=== PATIENT | female | born 1990 | race Caucasian/White ===

== ENCOUNTER → 2020-05-08 | Outpatient (REF) | payer OTHER ==
[~2020-05-08] MED LIST: DEPO150I IM; MONT10TA4 PO
[2020-05-08 17:50] LABS: APPEARANCE, URINE CLEAR (CLEAR); BACTERIA, URINE AUTO 1+ (NEGATIVE); BILIRUBIN, URINE AUTO NEGATIVE (NEGATIVE); BLOOD, URINE BLOOD NEGATIVE (NEGATIVE); COLOR, URINE YELLOW (YELLOW); GLUCOSE, URINE (UA) AUTO NEGATIVE (NEGATIVE); KETONE, URINE AUTO NEGATIVE (NEGATIVE); LEUKOCYTE ESTERASE, URINE AUTO NEGATIVE (NEGATIVE); NITRITE, URINE AUTO NEGATIVE (NEGATIVE); PROTEIN, URINE AUTO NEGATIVE (NEGATIVE); RBC, URINE AUTO 2 /HPF (0-3); SPECIFIC GRAVITY URINE AUTO 1.006 (1.002-1.035); SQUAMOUS EPITHELIAL CELL UR AU 0 /HPF (0-6); UROBILINOGEN, URINE AUTO 0.2 mg/dL (0.0-2.0); WBC, URINE AUTO 0 /HPF (0-3)
== END ==
LOC: M SMT 16:51
PROVIDERS: ATTEND Nurse Practitioner Women's Health
DX: R30.0 Dysuria (principal)

== ENCOUNTER → 2020-05-18 | Outpatient (CLI) | payer OTHER | LOC: M LABSMTC 11:01 | PROVIDERS: ATTEND Anesthesiology | DX: Z01.818 Encounter for other preprocedural examination (principal); Z20.828 Contact with and (suspected) exposure to other viral communicable diseases | CPT/HCPCS: C9803; U0002 ==

== ENCOUNTER 2020-05-20 10:38 | Day surgery (SDC) | payer OTHER ==
[~2020-05-20] VITALS: Ht 149.9 cm; Wt 60.8 kg
[~2020-05-20 10:38] MED LIST changes: +LIDOCAINE 2% 100MG/5ML SDV (FOR ANES.) As Ordered ONE; +MIDAZOLAM INJ 2MG/2ML VIAL (J2250 PER 1MG) As Ordered ONE; +ONDANSETRON 4MG/2ML VIAL As Ordered ONE; +ROCURONIUM BROMIDE 50 MG/5 ML VIAL As Ordered ONE; +dexameTHASONE 4 MG/ML 1ML VIAL (J1100 PER 1MG) As Ordered ONE; +fentaNYL 100 MCG/2 ML INJECTION (J3010) As Ordered ONE; +propofoL 200 MG/20 ML VIAL As Ordered ONE
[2020-05-20] MEDS ORDERED: ceFAZolin 2 GM/D5W 50 ML IV BAG (J0690 PER 500MG) As Ordered ONE (11:04)
[2020-05-20] MEDS ORDERED: ceFAZolin SOD 2 GM in IV 1 EA IV ONE (11:15)
[2020-05-20] MEDS ORDERED: LIDOCAINE 2% 5ML JELLY UROJET As Ordered ONE (11:16)
[2020-05-20] MEDS ORDERED: ACETAMINOPHEN 1000MG 100ML IV BTL (OFIRMEV) (J0131 PER 10MG) As Ordered ONE (12:13)
[2020-05-20] MEDS: fentaNYL 100 MCG/2 ML INJECTION (J3010) IV PRN ×4 (12:35→12:55)
[2020-05-20] MEDS: oxyCODONE 5MG TAB PO PRN ×2 (12:35→13:10)
[2020-05-20] MEDS ORDERED: fentaNYL 100 MCG/2 ML INJECTION (J3010) As Ordered ONE (12:37)
[2020-05-20] MEDS ORDERED: oxyCODONE 5MG TAB As Ordered ONE (12:37)
[2020-05-20] MEDS ORDERED: LR 1,000 ML IV SCH (13:00)
[2020-05-20] MEDS ORDERED: ONDANSETRON 4MG/2ML VIAL IV PRN (13:00)
[2020-05-20] MEDS ORDERED: METOCLOPRAMIDE INJ 10MG/2ML VIAL (J2765 PER 1) IV PRN (13:00)
--- NOTE | 2020-05-20 13:11 | ROOPDOC ---
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 POSTPROCEDURE DIAGNOSES: Same PROCEDURE: Cystoscopy and TURBT SURGEON: Maral Lund MD COKE INSPECTOR: None ANESTHESIA: General ESTIMATED BLOOD LOSS: Approximately 3 mL. COMPLICATIONS: None REMARKS: Tumor had some papillary areas, and some more nodular areas PROCEDURE NOTE: The patient is a 30-year-old female who has had severe pain with urination and dysuria with negative urine cultures. Cystoscopy in the office showed an abnormality at the dome of the bladder which was papillary, cystic, and nodular in nature. DESCRIPTION OF PROCEDURE: The patient was brought into the operating room and general anesthesia was induced. She was then placed in the lithotomy position. A 23 Malay resectoscope was inserted. The abnormality was seen on the dome of the bladder towards the left-hand side. This appeared to be a little more nodular and cystic than it did in the office when it appeared to be more papillary. At this point a TURBT was done at the area. Biopsies were obtained. Bladder tissue was sent for specimen. The patient tolerated the procedure well and was returned to the recovery room in stable condition. MARAL LUND MD May 20, 2020 13:11
[2020-05-20] MEDS ORDERED: KETOROLAC 30 MG/ML 1ML VIAL As Ordered ONE (13:39)
[2020-05-20] MEDS ORDERED: KETOROLAC 30 MG/ML 1ML VIAL IV PRN (14:00)
[2020-05-20 14:20] VITALS: BP 137/82
== END 2020-05-20 14:25 | disposition home or self-care (01) ==
LOC: M SDC 10:38
PROVIDERS: ATTEND Specialist
DX: N32.9 Bladder disorder, unspecified (principal); R30.0 Dysuria; F41.9 Anxiety disorder, unspecified; F32.9 Major depressive disorder, single episode, unspecified; Z79.899 Other long term (current) drug therapy; Z88.2 Allergy status to sulfonamides; Z91.010 Allergy to peanuts; Z88.1 Allergy status to other antibiotic agents
CPT/HCPCS: 52224; 81025; 88305; J0131; J0690; J1100; J1885; J2250; J2405; J2765; J3010

== ENCOUNTER → 2020-05-27 | Outpatient (REF) | payer OTHER ==
[~2020-05-27] MED LIST changes: -LIDOCAINE 2% 100MG/5ML SDV (FOR ANES.) As Ordered ONE; -MIDAZOLAM INJ 2MG/2ML VIAL (J2250 PER 1MG) As Ordered ONE; -ONDANSETRON 4MG/2ML VIAL As Ordered ONE; -ROCURONIUM BROMIDE 50 MG/5 ML VIAL As Ordered ONE; -dexameTHASONE 4 MG/ML 1ML VIAL (J1100 PER 1MG) As Ordered ONE; -fentaNYL 100 MCG/2 ML INJECTION (J3010) As Ordered ONE; -propofoL 200 MG/20 ML VIAL As Ordered ONE
[2020-05-27 14:29] LABS: APPEARANCE, URINE CLEAR (CLEAR); BACTERIA, URINE AUTO NEGATIVE (NEGATIVE); BILIRUBIN, URINE AUTO NEGATIVE (NEGATIVE); BLOOD, URINE BLOOD 1+ (NEGATIVE); COLOR, URINE YELLOW (YELLOW); GLUCOSE, URINE (UA) AUTO NEGATIVE (NEGATIVE); KETONE, URINE AUTO NEGATIVE (NEGATIVE); LEUKOCYTE ESTERASE, URINE AUTO 1+ (NEGATIVE); NITRITE, URINE AUTO NEGATIVE (NEGATIVE); PROTEIN, URINE AUTO 1+ mg/dL (NEGATIVE); RBC, URINE AUTO 9 /HPF (0-3); SPECIFIC GRAVITY URINE AUTO 1.009 (1.002-1.035); SQUAMOUS EPITHELIAL CELL UR AU 2 /HPF (0-6); UROBILINOGEN, URINE AUTO 0.2 mg/dL (0.0-2.0); WBC, URINE AUTO 24 /HPF (0-3)
== END ==
LOC: M SMT 13:00
PROVIDERS: ATTEND Urology
DX: R30.0 Dysuria (principal)

== ENCOUNTER → 2020-08-02 | Outpatient (CLI) | payer OTHER ==
[~2020-08-02] MED LIST changes: +ISOVUE-370 76% 100ML VIAL As Ordered ONE; +MONT10TA10 PO; -MONT10TA4 PO
--- NOTE | 2020-08-04 09:58 | REP ---
INDICATION: HEMATURIA. COMPARISON: 05/01/2020 TECHNIQUE: Axial precontrast, contrast-enhanced and delayed images from the lung bases to the pubic symphysis using 100 cc Isovue 370 intravenous contrast material. Coronal and sagittal reformations obtained along with CT urogram. This CT examination was performed using the following dose reduction techniques: Automated exposure control, adjustment of mA and/or kv according to the patient's size, and the use of iterative reconstruction technique. FINDINGS: Evaluation of the urinary tract system demonstrates normal appearance to the kidneys, ureters and bladder in all phases of evaluation. Specifically, no nephroureterolithiasis, hydroureteronephrosis or perinephric stranding is appreciated. Liver, spleen, pancreas, and bilateral adrenal glands are normal. Mucosal thickening and moderate inflammatory stranding surrounds the mid sigmoid colon and extends into the remainder of the pelvis with what appears to be a presumed chronic abscess measuring roughly 3.7 x 2.5 x 2.3 cm inseparable from the dome of the bladder and findings warrant further investigation (series 301; images 90-126). There is no evidence for bowel obstruction or free air to suggest current perforation and no significant ascites. Further evaluation of the pelvis demonstrates relatively otherwise normal bladder and age-appropriate uterus/adnexa. No ascites. No free air. No retroperitoneal adenopathy. Abdominal aorta and vasculature are normal. Surrounding musculoskeletal structures are intact. Lung bases are clear. IMPRESSION: 1. Inflammatory changes involving the sigmoid colon with surrounding fat stranding in the pelvis as well as what appears to be a chronic abscess inseparable from the dome of the bladder. In comparison with prior examination findings suggest sequelae of previous acute sigmoid diverticulitis and/or prior pelvic inflammatory disease. Clinical and physical correlation is required. 2. Urinary tract system is unremarkable. <Electronically signed by Gustavo Lau > 08/04/20 0912
== END ==
LOC: M RAD 09:48
PROVIDERS: ATTEND Nurse Practitioner Women's Health
DX: R31.29 Other microscopic hematuria (principal); R19.04 Left lower quadrant abdominal swelling, mass and lump
CPT/HCPCS: 74178; Q9967

== ENCOUNTER → 2020-08-08 | Outpatient (CLI) | payer OTHER ==
[~2020-08-08] MED LIST changes: -ISOVUE-370 76% 100ML VIAL As Ordered ONE; +LIDOCAINE 1% MDV 20ML VIAL As Ordered ONE; +SODIUM BICARBONATE 8.4% INJ 50MEQ 50 ML VIAL As Ordered ONE
[2020-08-08 13:55] VITALS: BP 115/61
--- NOTE | 2020-08-08 15:56 | REP ---
INDICATION: PELVIC ABSCESS COMPARISON: CT abdomen and pelvis dated 08/02 2020, ultrasound of the pelvis dated 04/17/2020. TECHNIQUE: The procedure was performed by NATY Cisneros, under the direct supervision of Dr. Betts The risks and benefits of the procedure were explained to the patient and an informed consent was obtained both verbally and written. Directly prior to the start of the procedure a formal time-out was completed in the procedure room. The abscess on the superior dome of the bladder was localized using ultrasound guidance. The skin was prepped and draped in a sterile fashion. Twelve ML of buffered lidocaine was used as a local anesthetic. Using ultrasound guidance an 8-Khmer pigtail catheter was inserted using trocar technique. FINDINGS: Seven mL of pus was withdrawn and sent to the laboratory for further analysis. The patient tolerated the procedure well and there were no immediate complications. After the appropriate amount of monitored convalescence, the patient was discharged from the department. IMPRESSION: Ultrasound-guided pigtail placement into superior bladder dome abscess. <Electronically signed by Arielle Vickers > 08/08/20 1434 <Electronically signed by Juancarlos Betts > 08/08/20 1552
== END ==
LOC: M IRPRO 11:44
PROVIDERS: ATTEND Urology
DX: N73.9 Female pelvic inflammatory disease, unspecified (principal)

== ENCOUNTER → 2020-12-26 | Outpatient (REF) | payer OTHER ==
[~2020-12-26] MED LIST changes: -LIDOCAINE 1% MDV 20ML VIAL As Ordered ONE; -SODIUM BICARBONATE 8.4% INJ 50MEQ 50 ML VIAL As Ordered ONE
[2020-12-26 18:08] LABS: APPEARANCE, URINE CLEAR (CLEAR); BACTERIA, URINE AUTO 1+ (NEGATIVE); BILIRUBIN, URINE AUTO NEGATIVE (NEGATIVE); BLOOD, URINE BLOOD NEGATIVE (NEGATIVE); COLOR, URINE AMBER (YELLOW); GLUCOSE, URINE (UA) AUTO NEGATIVE (NEGATIVE); KETONE, URINE AUTO NEGATIVE (NEGATIVE); LEUKOCYTE ESTERASE, URINE AUTO NEGATIVE (NEGATIVE); MUCUS, URINE SMALL (NEGATIVE); NITRITE, URINE AUTO NEGATIVE (NEGATIVE); PROTEIN, URINE AUTO 1+ mg/dL (NEGATIVE); RBC, URINE AUTO 2 /HPF (0-3); SPECIFIC GRAVITY URINE AUTO 1.014 (1.002-1.035); SQUAMOUS EPITHELIAL CELL UR AU 2 /HPF (0-6); WBC, URINE AUTO 11 /HPF (0-3)
== END ==
LOC: M SMT 16:57
PROVIDERS: ATTEND Nurse Practitioner Women's Health
DX: R30.0 Dysuria (principal)

== ENCOUNTER → 2021-08-21 | Outpatient (CLI) | payer OTHER ==
[~2021-08-21] MED LIST changes: +CYSTO-CONRAY II 17.2% 250ML VIAL (Q9958) As Ordered ONE; -MONT10TA10 PO; +MONT10TA97 PO
== END ==
LOC: M RADPRO 11:40
DX: R18.8 Other ascites (principal)
CPT/HCPCS: 51610; 74430; Q9958

== ENCOUNTER → 2024-10-16 | Outpatient (CLI) | payer OTHER ==
[~2024-10-16] MED LIST changes: +ADDE30CA3; +CETI10CA13 PO; -CYSTO-CONRAY II 17.2% 250ML VIAL (Q9958) As Ordered ONE; +FERR220E10 PO; +LEXA1TAB; +METH-1022; +MINO50CA3; +OXYB10TA23; +SPIR-10; +THERTAB52 PO
== END ==
LOC: M RAD 10:41
PROVIDERS: ATTEND Specialist
DX: N83.209 Unspecified ovarian cyst, unspecified side (principal)

== ENCOUNTER → 2025-05-24 | Outpatient (CLI) | payer OTHER ==
[~2025-05-24] MED LIST changes: +CYAN50002 SL; +ISOVUE-370 76% 100 ML VIAL As Ordered ONE; +PROBCAP2 PO; +SPIR50TA4
== END ==
LOC: M RADPRO 11:47
PROVIDERS: ATTEND Specialist
DX: N97.9 Female infertility, unspecified (principal)
CPT/HCPCS: 58340; 74740; Q9967